=== PATIENT | female | born 1990 | race African-American/Black ===

== ENCOUNTER 2019-03-24 01:13 | Emergency (ER) | payer OTHER ==
[2019-03-24 01:25] VITALS: BMI 22.6
--- NOTE | 2019-03-24 01:59 | PDOC ---
History of Present Illness - General Chief Complaint: Pain Stated Complaint: ABD PAIN/18 WKS Time Seen by Provider: 03/24/19 01:53 History Source: Patient Exam Limitations: No Limitations - History of Present Illness Initial Comments: 03/24/19 01:58 28y F at 18w gestation presenting to ED with complaints of abdominal cramping that started today when she woke up. She describes the pain as crampy, is in the lower abdomen to the pelvic area, is constant but waxes and wanes in intensity. Worsened when sitting down. She has not had pain like this before. She denies vaginal bleeding, leakage of fluid, n/v/d, back pain, urinary symptoms, dysuria, hematuria, constipation, fevers, chills, chest pain, sob. She has been eating fine and eating does not cause the pain. Most recent OB appointment was last month and everything was normal. She says she was tested for STD's during the appointment and everything was negative. She is sexually active with her partner of 1y and father of the fetus. PMD: PMH: none PSH: small bowel resection Meds: none Allergies: nkda Social: denies Past History - Past Medical History Allergies/Adverse Reactions: Allergies Allergy/AdvReac Type Severity Reaction Status Date / Time No Known Allergies Allergy Verified 03/24/19 01:24 COPD: No - Psycho Social/Smoking Cessation Hx Smoking History: Never smoked Have you smoked in the past 12 months: No Information on smoking cessation initiated: No Hx Alcohol Use: No Drug/Substance Use Hx: No Review of Systems - Review of Systems Constitutional: No: Chills, Fever HEENTM: No: Symptoms Reported Respiratory: No: Symptoms reported Cardiac (ROS): No: Symptoms Reported ABD/GI: Yes: See HPI : Yes: See HPI Musculoskeletal: No: Symptoms Reported Integumentary: No: Symptoms Reported Neurological: No: Symptoms reported *Physical Exam - Vital Signs Last Vital Signs Temp Pulse Resp BP Pulse Ox 97.9 F 95 H 18 101/69 100 03/24/19 01:21 03/24/19 01:21 03/24/19 01:21 03/24/19 01:21 03/24/19 01:21 - Physical Exam General Appearance: Yes: Nourished, Appropriately Dressed, Moderate Distress HEENT: positive: EOMI, MONSTER Respiratory/Chest: positive: Lungs Clear, Normal Breath Sounds. negative: Crackles, Rales, Rhonchi, Stridor, Wheezing Cardiovascular: positive: Regular Rhythm, Regular Rate, S1, S2. negative: Edema , JVD, Murmur Vascular Pulses: Carotid (R): 2+, Carotid (L): 2+ Female Pelvic Exam: positive: cervical os closed, CMT, discharge (white discharge, not foul smelling), other (normal cervix, no friability or redness). negative: adnexal tenderness, vaginal bleeding Gastrointestinal/Abdominal: positive: Normal Bowel Sounds, Soft, Tenderness ( suprapubic tenderness) Musculoskeletal: negative: CVA Tenderness Extremity: positive: Normal Capillary Refill Integumentary: positive: Normal Color, Dry, Warm Neurologic: positive: roofer metal II-XII NML intact, Fully Oriented, Alert, Normal Mood/ Affect, Normal Response, Motor Strength 5/5 ED Treatment Course - LABORATORY CBC & Chemistry Diagram: 03/24/19 02:45 03/24/19 02:45 - RADIOLOGY Radiology Studies Ordered: Category Date Time Status US(SINGLE) [US] Stat Ultrasound 03/24/19 01:49 Ordered Medical Decision Making - Medical Decision Making 03/24/19 03:44 28y F at 18w gestation presenting to ED with complaints of lower abdominal cramping. vitals wnl ddx includes but not limited to miscarriage, uterine rupture, placental abruption, uti, low suspicion for appendicitis given location of pain and no associated abdominal complaints. No injuries. -US, cbc, cmp, ua ucx tylenol US:There is a single live intrauterine gestation with measurements corresponding to 18 weeks and 6 days. Estimated weight 268.7 g. heart rate is 146 bpm. motion was observed. Amniotic fluid was subjectively normal. Anterior placenta. Posterior uterine fibroid, heterogeneous in appearance, measuring 7.3 cm x 7.7 cm x 6 cm. Cervix is 4.7 cm in length and is closed. 03/24/19 04:14 ua negative for infection, normal cbc, normal cmp. pain controlled with tylenol, has ob f/u. safe for dc home. sono results discussed with patient, advised to f/u with ob. given instructions for pain control. provided return precautions. pt agrees to plan dispo: home Discharge - Discharge Information Problems reviewed: Yes Clinical Impression/Diagnosis: Abdominal pain Qualifiers: Abdominal location: lower abdomen, unspecified Qualified Code(s): R10.30 - Lower abdominal pain, unspecified Uterine fibroid Qualifiers: Uterine leiomyoma location: unspecified location Qualified Code(s): D25.9 - Leiomyoma of uterus, unspecified Condition: Good Disposition: HOME - Admission No - Follow up/Referral - Patient Discharge Instructions Patient Printed Discharge Instructions: DI for Uterine Fibroids, DI for Abdominal Pain-Adult Additional Instructions: You were seen in the emergency room today for abdominal pain. The ultrasound shows an 18w old baby. You also have a uterine fibroid. The blood tests were normal and the urine did not show an infection. The pain could be caused by the fibroid. I recommend that you follow up with your methods analyst about the pain and let them know the results of the sonogram. You can take Tylenol for the pain as needed, up to 1 gram every 8 hours. Do not take more than 4 grams in one day. Come back to the emergency room for worsening pain, vomiting, vaginal bleeding or if any new concerning symptom develops. Thank you - Post Discharge Activity Work/Back to School Note: Back to Work
--- NOTE | 2019-03-24 02:13 | PDOC ---
Attending Attestation - Resident Resident Name: ConnieZoey - ED Attending Attestation I have performed the following: I have examined & evaluated the patient, The case was reviewed & discussed with the resident, I agree w/resident's findings & plan - HPI HPI: 03/24/19 04:28 see resident hpi - Physicial Exam PE: 03/24/19 04:29 agree with resident exam - Medical Decision Making 03/24/19 04:29 28-year-old gravid female with low pelvic/suprapubic pain Ultrasound shows a live 18-week IUP, there is also a 7 to 8 cm uterine fibroid noted Patient has no fever vomiting or upper abdominal pain to suggest biliary disease or appendicitis On reexam at 4:20 AM patient is feeling better, the pain appears to be positional She will follow-up with her DIRECTOR CLOUD TRANSFORMATION this week
[2019-03-24] MEDS ORDERED: ACETAMINOPHEN 1000 MG/100 ML VIAL (NON FORMULARY) IVPB ONE (02:25)
[2019-03-24] MEDS ORDERED: ACETAMINOPHEN 500 MG TABLET (FP) PO ONE (03:01)
[2019-03-24 03:07] LABS: BASO % 0.4 % (0-2.0); EOS % 2.3 % (0-4.5); HEMATOCRIT 32.8 % (32.4-45.2); LYMPH % 19.9 % (8-40); MCH 30.8 pg (25.7-33.7); MCHC 33.6 g/dl (32.0-36.0); MEAN CELL VOLUME 91.7 fl (80-96); MEAN PLT VOLUME 7.2 fl (7.5-11.1); MONO % 7.1 % (3.8-10.2); NEUT % 70.3 % (42.8-82.8); PLATELET COUNT 294 K/MM3 (134-434); RBC 3.58 M/mm3 (3.60-5.2); RDW 13.9 % (11.6-15.6); WHITE BLOOD COUNT 9.3 K/mm3 (4.0-10.0)
[2019-03-24] MEDS ORDERED: ACETAMINOPHEN 325 MG TABLET (FP) ONE (03:20)
[2019-03-24 03:35] LABS: ALBUMIN 3.4 g/dl (3.4-5.0); BILIRUBIN,TOTAL 0.2 mg/dL (0.2-1); BLOOD UREA NITROGEN 9.4 mg/dL (7-18); CALCIUM 8.9 mg/dL (8.5-10.1); CREATININE 0.6 mg/dL (0.55-1.3); TOT PROT 6.8 g/dl (6.4-8.2)
[2019-03-24 04:02] LABS: PH,URINE 5.5 (5.0-8.0); URINE APPEARANCE CLEAR; URINE BILIRUBIN NEGATIVE (NEGATIVE); URINE COLOR YELLOW; URINE GLUCOSE (UA) NEGATIVE (NEGATIVE); URINE KETONE NEGATIVE (NEGATIVE); URINE LEUK ESTERASE NEGATIVE (NEGATIVE); URINE NITRITE NEGATIVE (NEGATIVE); URINE PROTEIN NEGATIVE (NEGATIVE); URINE UROBILINOGEN 0.2 mg/dL (0.2-1.0)
[2019-03-24 04:35] VITALS: BP 104/72; PULSE 101; TEMP 98.6
== END 2019-03-24 04:49 | disposition home or self-care (01) ==
LOC: JER 01:13
PROC: 3E033NZ Introduction of Analgesics, Hypnotics, Sedatives into Peripheral Vein, Percutaneous Approach (ICD-10-PCS; principal; 2019-03-24)
DX: O26.892 Other specified pregnancy related conditions, second trimester (principal); O34.12 Maternal care for benign tumor of corpus uteri, second trimester; D25.9 Leiomyoma of uterus, unspecified; Z3A.18 18 weeks gestation of pregnancy
CPT/HCPCS: 36415; 76801-TC; 80053; 81003; 85025; 87086; 87491; 87591; 99284-25

== ENCOUNTER 2019-08-09 06:30 | Inpatient (IN) | payer OTHER ==
[2019-08-09] MEDS ORDERED: DEXTROSE 5%-LACTATED RINGERS 1,000 ML IV SCH (08:00)
[2019-08-09 10:03] VITALS: BMI 27.1
[2019-08-09] MEDS ORDERED: PROMETHAZINE HCL 25 MG/1 ML VIAL ONE (10:45)
[2019-08-09] MEDS ORDERED: AMPICILLIN SODIUM 2 GM VIAL ONE (10:45)
[2019-08-09] MEDS ORDERED: BUTORPHANOL TARTRATE 1 MG/ML VIAL ONE ×2 (10:45)
[2019-08-09] MEDS ORDERED: BUTORPHANOL TARTRATE 2 MG/ML VIAL IVPB ONE (11:00)
[2019-08-09] MEDS ORDERED: AMPICILLIN - 2 GM in SODIUM CHLORIDE 100 ML IVPB ONE (11:00)
[2019-08-09] MEDS ORDERED: PROMETHAZINE HCL 25 MG/1 ML VIAL IVPB ONE ×2 (11:00→14:30)
[2019-08-09 11:23] LABS: BASO % 0.5 % (0-2.0); EOS % 1.2 % (0-4.5); HEMATOCRIT 33.3 % (32.4-45.2); HEMOGLOBIN 11.1 GM/dL (10.7-15.3); LYMPH % 13.6 % (8-40); MCH 29.7 pg (25.7-33.7); MCHC 33.4 g/dl (32.0-36.0); MEAN CELL VOLUME 89.1 fl (80-96); MEAN PLT VOLUME 7.3 fl (7.5-11.1); NEUT % 79.7 % (42.8-82.8); PLATELET COUNT 252 K/MM3 (134-434); RBC 3.74 M/mm3 (3.60-5.2); RDW 16.7 % (11.6-15.6); WHITE BLOOD COUNT 6.9 K/mm3 (4.0-10.0)
[2019-08-09] MEDS: DEXTROSE 5%-LACTATED RINGERS 1,000 ML IV SCH (11:27)
[2019-08-09 11:45] LABS: BLOOD UREA NITROGEN 5.6 mg/dL (7-18); CALCIUM 8.5 mg/dL (8.5-10.1); CREATININE 0.8 mg/dL (0.55-1.3); POTASSIUM 3.7 mmol/L (3.5-5.1)
[2019-08-09 11:53] LABS: INR 0.94 (0.83-1.09); PROTHROMBIN TIME (PATIENT) 11.1 SEC (9.7-13.0)
[2019-08-09 11:56] LABS: ACTIVATED PTT 29.1 SECONDS (25.2-36.5)
--- NOTE | 2019-08-09 12:46 | HP ---
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: No: Alzheimer's, CVA, Dementia, Migraine, Multiple Sclerosis, Peripheral Neuropathy, Parkinson's, Seizure, Syncope, TIA, Vertigo, Other Cardiovascular: No: AFIB, Aneurysm, Aortic Insufficiency, Aortic Stenosis, CAD, CHF, Deep Vein Thrombosis, HTN, Hyperlipdemia, CA, Mitral Insufficiency, Mitral Stenosis, Murmur, Pulmonary Hypertension, Other Pulmonary: No: Asthma, Bronchitis, Cancer, COPD, O2 Dependent, Pneumonia, Previously Intubated, Pulmonary Embolus, Pulmonary Fibrosis, Sleep Apnea, Other Gastrointestinal: No: Ascites, Cancer, Constipation, Crohn's Disease, Diverticulitis, Diverticulosis, Esophageal Varices, Gastritis, GERD, GI Bleed, Hemorrhoids, Hiatal Hernia, Inflamatory Bowel Disease, Irritable Bowel Disease, Pancreatitis, Peptic Ulcer Disease, Ulcerative Colitis, Other Hepatobiliary: No: Cirrhosis, Cholelithiasis, Cholecystitis, Choledocholithiasis , Hepatitis A, Hepatitis B, Hepatitis C, Other Renal/: No: Renal Failure, Renal Inusuff, BPH, Cancer, Hematuria, Hemodialysis , Neurogenic Bladder, Renal Calculi, UTI, Other Reproductive: No: Ectopic , Endometriosis, Fibroids, PID, Polycystic Ovary Syndrome, Postmenopausal, Other ...: 1 ...Para: 0 ...LMP: 11/10/19 ... Weeks Gestation by Dates: 38.4 ...EDC by Dates: 08/19/19 ...EDC by Sono: 08/19/19 Heme/Onc: No: Anemia, B12 Deficiency, Bleeding Disorder, Cancer, Current Chemotherapy, Current Radiation Therapy, Hemochromatosis, Hypercoaguable State, Myeloproliferative Synd, Sickle Cell Disease, Sickle Cell Trait, Thrombocytopenia, Other Infectious Disease: No: AIDS, C-Diff, Herpes Zoster, HIV, MRSA, STD's, Tuberculosis, VREF, Other Psych: No: Addictions, Anxiety, Bipolar, Depression, Panic, Psychosis, Schizophrenia, Other Musculoskeletal: No: Bursitis, Chronic low back pain, Hemiparesis, Hemiplegia, Osteoarthritis, Paraplegia, Other Rheumatology: No: Fibromyalgia, Gout, Lupus, Rheumatoid Arthritis, Sarcoidosis, Vasculitis, Other ENT: No: Allergic Rhinitis, Sinusitis, Other Endocrine: No: [place]'s Disease, Chriss's Disease, Diabetes Insipidus, Diabetes Mellitus, Hyperparathyroidism, Hyperthyroidism, Hypothyroidism, Osteopenia, SIADH, Other Dermatology: No: Basal Cell, Cellulitis, Eczema, Melanoma, Psoriasis, Squamous Cell, Other - Past Surgical History Past Surgical History: No: None, AAA Repair, AICD, Amputation, Appendectomy, Arthrosocopy, AV Fistula/Graft, Bariatric Surgery, Breast Biopsy, Bypass, CABG, Carotid Endarterectomy, Cataract Removal, Cholecystectomy, Colectomy, Colonoscopy, Colostomy, Craniotomy, , Cystectomy, Hernia Repair, Hysterectomy, Ileal Conduit, Ileosotomy, Joint Replacement, Kidney Transplant, Laminectomy, Liver Transplant, Mastectomy, Nephrectomy, Oopherectomy, Orchiectomy, Permanent Pacemaker, Prostatectomy, Splenectomy, Stent, Thoracotomy , TURP, Tonsillectomy, Tubal Ligation, Upper Endoscopy, Valve Replacement, Vasectomy, Vein Stripping/Ligation Hx Myomectomy: No Hx Transabdominal Cerclage: No - Advance Directives Advance Directives: No: Living Will, Health Care Proxy, DNR, Organ Donor, Tissue Donor, MOLST - Smoking History Smoking history: Never smoked Have you smoked in the past 12 months: No - Alcohol/Substance Use Hx Alcohol Use: No History of Substance Use: reports: None - Social History Usual Living Arrangement: Yes: With Spouse, With Significant Other Do you think of yourself as: Straight/Heterosexual ADL: Independent History of Recent Travel: No Home Medications - Allergies Allergies/Adverse Reactions: Allergies Allergy/AdvReac Type Severity Reaction Status Date / Time No Known Allergies Allergy Verified 03/24/19 01:24 - Home Medications Home Medications: Ambulatory Orders Folic Acid - 0 mg PO DAILY 03/24/19 95/Iron Fum/Folic/Dha [ + Dha Combo Pack] 1 each PO DAILY 03/24 Family Medical History Family History: Denies Review of Systems - Review of Systems Constitutional: reports: No Symptoms Eyes: reports: No Symptoms HENT: reports: No Symptoms Neck: reports: No Symptoms Cardiovascular: reports: No Symptoms Respiratory: reports: No Symptoms Gastrointestinal: reports: No Symptoms Genitourinary: reports: No Symptoms Breasts: reports: No Symptoms Reported Musculoskeletal: reports: No Symptoms Integumentary: reports: No Symptoms Neurological: reports: No Symptoms Endocrine: reports: No Symptoms Hematology/Lymphatic: reports: No Symptoms Psychiatric: reports: No Symptoms Physical Exam - Maternity Vital Signs: Vital Signs Temperature 97.8 F 08/09/19 12:00 Pulse Rate 88 08/09/19 12:00 Respiratory Rate 08/09/19 12:00 Blood Pressure 102/68 08/09/19 12:00 O2 Sat by Pulse Oximetry (%) Constitutional: Yes: Well Nourished, No Distress, Calm Eyes: Yes: WNL, Conjunctiva Clear, EOM Intact HENT: Yes: WNL, Atraumatic, Normocephalic Neck: Yes: WNL, Supple, Trachea Midline Cardiovascular: Yes: WNL, Regular Rate and Rhythm Lungs: Clear to auscultation Breast(s): Yes: WNL - Abdominal Exam/OB Fundal Height: 38 Number of Fetuses: Single Presentation: Vertex Contractions: Yes Regularity: Regular Intensity: Mod/Strong Monitor Mode: External Heart Rate (range): 150 Heart Rate Location: [facility] Category: I Accelerations: Uniform Decelerations: None - Vaginal Exam/OB Vaginal Bleediing: No Speculum Exam: No Dilatation (cm): 4 Effacement (%): 80 Amniotic Membrane Status: Intact Presentation: Vertex/Position Station: -2 - Physical Exam Musculoskeletal: Yes: WNL Extremities: Yes: WNL Edema: Yes Edema: LUE: 1+, RUE: 1+, LLE: 1+, RLE: 1+ Integumentary: Yes: WNL Deep Tendon Reflex Grade: Normal +2 ...Motor Strength: WNL Psychiatric: Yes: WNL, Alert, Oriented - Labs Lab Results: CBC, BMP 08/09/19 10:57 08/09/19 10:57 Hemorrhage Risk Assessment - Risk Factors Medium Risk Factors: Yes: None High Risk Factors: Yes: None Risk Score: 1 Risk Level: Medium Risk Assessment/Plan for sp laboring by herself, then augmenting
[2019-08-09] MEDS ORDERED: BUTORPHANOL TARTRATE 1 MG/ML VIAL IVPUSH ONE (14:30)
[2019-08-09] MEDS ORDERED: AMPICILLIN SODIUM 1 GM VIAL ONE ×3 (14:50→23:35)
[2019-08-09] MEDS: AMPICILLIN - 1 GM in SODIUM CHLORIDE 100 ML IVPB SCH ×3 (15:00→23:15)
[2019-08-09] MEDS ORDERED: FENTANYL/BUPIVACAINE/NS/PF - PCEA - 50 ML DISP.SYRIN EP ONE ×2 (17:25→20:45)
--- NOTE | 2019-08-09 17:26 | PN ---
Progress Note (short form) - Note Progress Note: 520 pm, 5 cm, 80%, -1, nst reactive, for epidural and pitocin soon
[2019-08-09] MEDS ORDERED: NALOXONE HCL 0.4 MG/ML VIAL IVPUSH PRN (17:27)
[2019-08-09] MEDS ORDERED: OXYTOCIN 30 UNITS in 0.9% NS 30 UNIT/500 ML INFUS.BAG IVPB SCH (17:30)
[2019-08-09] MEDS ORDERED: LIDO 2%/EPI 1:200000 PRESRVFRE (20 ML SDVIAL) ONE (17:32)
[2019-08-09] MEDS ORDERED: BUPIVACAINE HCL/PF 0.25% (2.5MG/ML) 10 ML VIAL ONE (17:32)
[2019-08-09] MEDS: FENTANYL/BUPIVACAINE/NS/PF - PCEA - 50 ML DISP.SYRIN EP SCH (18:05)
[2019-08-09] MEDS ORDERED: OXYTOCIN 30 UNITS in 0.9% NS 30 UNIT/500 ML INFUS.BAG IVPB ONE (18:14)
[2019-08-09] MEDS ORDERED: ELECTROLYTE-148 SOLN 1,000 ML IV SCH (19:00)
[2019-08-09] MEDS ORDERED: OXYTOCIN 20 UNITS in 0.9% NS 20 UNIT/1,000 ML INFUS.BAG IV ONE (23:17)
[2019-08-09] MEDS ORDERED: LIDOCAINE HCL 1% PRESERVATIVE FREE - 30ML VIAL ONE (23:34)
[2019-08-09] MEDS: ACETAMINOPHEN 325 MG TABLET (FP) PO PRN (23:45)
[2019-08-09] MEDS ORDERED: ACETAMINOPHEN 325 MG TABLET (FP) ONE (23:56)
[2019-08-10] MEDS: OXYTOCIN 20 UNITS in 0.9% NS 20 UNIT/1,000 ML INFUS.BAG IV SCH (01:15)
[2019-08-10] MEDS ORDERED: BISACODYL 10 MG SUPP.RECT RC PRN (01:34)
[2019-08-10] MEDS ORDERED: METHYLERGONOVINE MALEATE 0.2 MG/1 ML AMP IM PRN (01:34)
[2019-08-10] MEDS ORDERED: WITCH HAZEL 50% (TUCKS) 40 PAD/JAR PAD TP PRN (01:34)
[2019-08-10] MEDS ORDERED: BENZOCAINE 20% 57 GM BOTTLE TP PRN (01:34)
[2019-08-10] MEDS ORDERED: BENZOCAINE 28 GM HEMORRHOIDAL OINTMENT TP PRN (01:34)
--- NOTE | 2019-08-10 01:38 | PN ---
Progress Note (short form) - Note Progress Note: 730 pm 7 cm, nst reactive, uc q 3 min, continue pitocin , comfort w epidural
--- NOTE | 2019-08-10 01:39 | PN ---
Progress Note (short form) - Note Progress Note: 11pm, 9 1/2 cm, pushing soon, uc q 3 min, off epidural soon , nst reactive
--- NOTE | 2019-08-10 01:44 | PN ---
Delivery - Delivery Vaginal Delivery: Vacuum Assist Type of Anesthesia: Epidural Episiotomy/Laceration: Right Mediolateral EBL (cc): 250 Delivery, Single - Stages of Labor Date 1st Stage Initiatied: 08/09/19 Date 2nd Stage Initiated: 08/10/19 Date of Delivery: 08/10/19 Date Placenta Delivered: 08/10/19 Placenta: Yes: Spontaneous - Condition of Infant Telephone Sales Representative/Air Defense Artillery Officer Present: No Gender: Male Position: OP, OT Remarks - Remarks Remarks: efw of 7 lb , maternal exhaustion, no more pushing efforts after one hr, then tachy on and off, maternal temp of 100.6, to experdite the delivery for immenent delivery, vaccum applied, ot position antiocipated, one pop off only, 4 pulls, baby was out , can x 1 , ca foot x 1 , no complications, 9/9
[2019-08-10] MEDS: oxyCODONE HCL 5 MG TABLET PO PRN ×2 (01:45→21:55)
[2019-08-10] MEDS: AMPICILLIN - 1 GM in SODIUM CHLORIDE 100 ML IVPB SCH (04:22)
[2019-08-10] MEDS: ACETAMINOPHEN 325 MG TABLET (FP) PO PRN ×2 (05:46→10:31)
[2019-08-10] MEDS: IBUPROFEN 600 MG TABLET (FP) PO PRN ×3 (05:47→21:56)
--- NOTE | 2019-08-10 20:51 | PROC ---
Obstetrical Vaccum Device - Doc. Following Use of Vaccum Device Indications for use: Tachycardia, Maternal Exhaustion Risks and Benefits Explained: Yes (efw of 7 lbs, ) Consent on Chart: Yes Dilation (0-10): 10 Station: 2 Molding: No Position: OT Caput: No Proper placement of cup confirmed: Yes Number of pulls: 4 Number of pop-offs: 1 Duration of time cup on head (min): 1 Maximum pressure attained: 30 Total time cup near/at maximum pressure (min): 1 Reduction of pressure between contractions: Yes Outcome: 9/9 Appearance of head on delivery: Normal Grinder Operator present during vacuum extraction: No Grinder Operator & nursery staff notified of vacuum extraction: Yes
[2019-08-10] MEDS: FENTANYL/BUPIVACAINE/NS/PF - PCEA - 50 ML DISP.SYRIN EP SCH (22:21)
[2019-08-11] MEDS: IBUPROFEN 600 MG TABLET (FP) PO PRN ×4 (02:10→20:55)
[2019-08-11] MEDS: oxyCODONE HCL 5 MG TABLET PO PRN ×4 (02:56→20:56)
[2019-08-11 08:12] LABS: BASO % 0.3 % (0-2.0); EOS % 1.1 % (0-4.5); HEMATOCRIT 28.5 % (32.4-45.2); HEMOGLOBIN 9.5 GM/dL (10.7-15.3); LYMPH % 14.4 % (8-40); MCH 29.9 pg (25.7-33.7); MCHC 33.3 g/dl (32.0-36.0); MEAN PLT VOLUME 7.5 fl (7.5-11.1); MONO % 7.4 % (3.8-10.2); NEUT % 76.8 % (42.8-82.8); PLATELET COUNT 210 K/MM3 (134-434); RBC 3.17 M/mm3 (3.60-5.2); RDW 16.8 % (11.6-15.6)
[2019-08-11] MEDS ORDERED: FLU VACC QS2019-20(6MOS UP)/PF 60 MCG/0.5 ML SYRINGE IM ONE (10:00)
[2019-08-11] MEDS ORDERED: DIPHTH,PERTUSS(ACELL),TET 0.5 ML DISP.SYRIN IM ONE (10:00)
[2019-08-11] MEDS ORDERED: FLU VACCINE QUAD 60 MCG/0.5 ML (MDV 19-20) IM ONE (10:00)
[2019-08-11] MEDS: OXYTOCIN 20 UNITS in 0.9% NS 20 UNIT/1,000 ML INFUS.BAG IV SCH (16:14)
[2019-08-11] MEDS: DEXTROSE 5%-LACTATED RINGERS 1,000 ML IV SCH (16:14)
--- NOTE | 2019-08-11 21:16 | PN ---
Post Progress Note Post Day: 1 Type of Delivery: Vital Signs: Vital Signs Temperature 98.6 F 08/11/19 10:00 Pulse Rate 96 H 08/11/19 10:00 Respiratory Rate 18 08/11/19 10:00 Blood Pressure 110/67 08/11/19 10:00 O2 Sat by Pulse Oximetry (%) 100 08/10/19 23:42 Breast Exam: Yes: Soft Uterus: Yes: Fundus Firm, Fundus below umbilicus, Non-tender Abdomen/GI: Yes: Abdomen soft, Passing flatus, Tolerating PO Lochia: Yes: Serosa Lochia, amount: Small Extremities: Yes: Calves non-tender Perineum: Yes: Episiotomy Activity: Ambulating (dc pt home tomorrow ) - Labs Labs: CBC WBC 13.0 K/mm3 (4.0-10.0) H 08/11/19 07:40 RBC 3.17 M/mm3 (3.60-5.2) L 08/11/19 07:40 Hgb 9.5 GM/dL (10.7-15.3) L 08/11/19 07:40 Hct 28.5 % (32.4-45.2) L 08/11/19 07:40 MCV 90.0 fl (80-96) 08/11/19 07:40 MCH 29.9 pg (25.7-33.7) 08/11/19 07:40 MCHC 33.3 g/dl (32.0-36.0) 08/11/19 07:40 RDW 16.8 % (11.6-15.6) H 08/11/19 07:40 Plt Count 210 K/MM3 (134-434) 08/11/19 07:40 MPV 7.5 fl (7.5-11.1) 08/11/19 07:40 Absolute Neuts (auto) 10.0 K/mm3 (1.5-8.0) H 08/11/19 07:40 Neutrophils % 76.8 % (42.8-82.8) 08/11/19 07:40 Lymphocytes % 14.4 % (8-40) 08/11/19 07:40 Monocytes % 7.4 % (3.8-10.2) 08/11/19 07:40 Eosinophils % 1.1 % (0-4.5) 08/11/19 07:40 Basophils % 0.3 % (0-2.0) 08/11/19 07:40 Nucleated RBC % 0 % (0-0) 08/11/19 07:40
--- NOTE | 2019-08-11 21:19 | DS ---
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 AND TESTER Vital Signs: Vital Signs Temperature 98.6 F 08/11/19 10:00 Pulse Rate 96 H 08/11/19 10:00 Respiratory Rate 18 08/11/19 10:00 Blood Pressure 110/67 08/11/19 10:00 O2 Sat by Pulse Oximetry (%) 100 08/10/19 23:42 Constitutional: Yes: Well Nourished, No Distress, Calm Eyes: Yes: WNL, Conjunctiva Clear, EOM Intact HENT: Yes: WNL, Atraumatic, Normocephalic Neck: Yes: WNL, Supple, Trachea Midline Cardiovascular: Yes: WNL, Regular Rate and Rhythm Respiratory: Yes: WNL, Regular, CTA Bilaterally Gastrointestinal: Yes: WNL, Normal Bowel Sounds, Soft ...Rectal Exam: Yes: WNL Renal/: Yes: WNL Pelvis: Yes: WNL External Genitalia: Yes: Normal Internal Exam Deferred: Yes Vaginal Exam: Yes: Normal Cervix: Yes: Normal Uterus: Yes: Normal Adnexa: Normal: Bilateral ....Post : Yes: Uterus firm, Uterus non-tender Breast(s): Yes: WNL Musculoskeletal: Yes: WNL Extremities: Yes: WNL Edema: Yes Edema: LUE: 1+, RUE: 1+, LLE: 1+, RLE: 1+ Integumentary: Yes: WNL Wound/Incision: Yes: Clean/Dry, Well Approximated Neurological: Yes: WNL, Alert, Oriented ...Motor Strength: WNL Psychiatric: Yes: WNL, Alert, Oriented Labs: CBC, BMP 08/11/19 07:40 08/09/19 10:57 Delivery - Delivery Vaginal Delivery: Vacuum Assist Type of Anesthesia: Epidural Episiotomy/Laceration: Right Mediolateral EBL (cc): 250 Delivery, Single - Stages of Labor Date 1st Stage Initiatied: 08/09/19 Time 1st Stage Initiated: 06:00 Date 2nd Stage Initiated: 08/10/19 Time 2nd Stage Initiated: 00:00 Date of Delivery: 08/10/19 Time of Delivery: 01:09 Time Placenta Delivered: 01:15 Placenta: Yes: Spontaneous - Condition of Infant Cash Management Specialist/Consulting Utility Forester Present: No Gender: Male Weight: 2.977 kg Position: OP, OT Total Hours ROM (Hrs/Mins): 13hrs. 50 mins - 1 Minute Total Score: 9 5 Minutes Total Score: 9 Discharge Summary Problems reviewed: Yes Reason For Visit: LABOR Procedures: Principal: Other Procedures: none Hospital Course: uneventful Health Concerns: none Plan of Treatment: oob as much as possible Goals: return to work in 6 weeks Condition: Good - Instructions Diet, Activity, Other Instructions: Physical activity Resume your normal everyday activity as tolerated no heavy lifting or exercise until seen by your surgeon. You may walk unlimited ramila of and climb stairs. You may resume driving the car when you feel safe and comfortable behind the wheel. No sexual activity as instructed. Wound care If you have a bandage, leave it on, and keep dry for 48-72 hours. After that time discard the outer bandage. If they are tapes on the skin under the out of bandage leave them in place. They will peel off in the next 7 to 10 days. Do Not Peel them off. You may shower the day after surgery. If there are tapes present on the skin, you may shower over them. Diet There are no dietary restrictions. Eat healthy, high-fiber foods. Drink 6 to 8 glasses of liquid each day. This will assist in keeping your bowels are regular. Pain management You may take Tylenol or acetaminophen or Ibuprofen (for example, Motrin, Advil etc.) from my pain prescription medication is ordered should be taken as prescribed for moderate to severe pain. Call MD for any of the following: call dr vale for 6 wekks appointment Severe pain not relieved by medication Fever of 101 or higher Excessive bleeding or drainage on dressing Inability to urinate Disposition: HOME - Home Medications Comprehensive Discharge Medication List: Ambulatory Orders Folic Acid - 0 mg PO DAILY 03/24/19 95/Iron Fum/Folic/Dha [ + Dha Combo Pack] 1 each PO DAILY 03/24 Prescription Drug Monitoring Program (I-STOP) results: I-STOP reviewed and no issues identified
[2019-08-11] MEDS ORDERED: SENNOSIDES/DOCUSATE COMBO (SENNA PLUS) TABLET (UD) PO PRN (22:00)
[2019-08-12] MEDS: IBUPROFEN 600 MG TABLET (FP) PO PRN ×2 (04:36→09:32)
[2019-08-12] MEDS: oxyCODONE HCL 5 MG TABLET PO PRN (04:36)
[2019-08-12] MEDS: OXYTOCIN 20 UNITS in 0.9% NS 20 UNIT/1,000 ML INFUS.BAG IV SCH (07:02)
[2019-08-12] MEDS: ACETAMINOPHEN 325 MG TABLET (FP) PO PRN (09:33)
[2019-08-12 13:20] VITALS: BP 108/67; PULSE 78; TEMP 97.8
== END 2019-08-12 12:55 | disposition home or self-care (01) | DRG 807 ==
LOC: JDEL 06:30 → JERBED 09:30 → JLDR 09:53 → J3W 08-10 04:05
PROVIDERS: ADMIT Obstetrics & Gynecology; ATTEND Obstetrics & Gynecology
PROC: 10D07Z6 Extraction of Products of Conception, Vacuum, Via Natural or Artificial Opening (ICD-10-PCS; principal; 2019-08-10)
PROC: 3E033VJ Introduction of Other Hormone into Peripheral Vein, Percutaneous Approach (ICD-10-PCS; 2019-08-10)
DX: O76 Abnormality in fetal heart rate and rhythm complicating labor and delivery (principal); Z37.0 Single live birth; O75.81 Maternal exhaustion complicating labor and delivery; Z3A.38 38 weeks gestation of pregnancy; O66.5 Attempted application of vacuum extractor and forceps
CPT/HCPCS: 36415; 36600; 59409; 80048; 82803; 85025; 85610; 85730; 86593; 86762; 86850; 86900; 86901; 87389; 90686; 90715